=== PATIENT | male | born 1955 | race Caucasian/White ===

== ENCOUNTER 2019-05-27 12:20 | Inpatient (IN) | payer BC ==
[~2019-05-27] VITALS: Ht 188 cm; Wt 110.9 kg
[~2019-05-27 12:20] MED LIST: PERCOCET 325 MG1 TA2 PO; ZOFRAN ODT4 MG PO
--- NOTE | 2019-08-20 19:06 | NUR ---
Patient called regarding pre op Covid 19 screen. Will come to hospital [facility] for screening.
[2019-08-26] VITALS (12 sets, daily range): BP systolic 123–178; BP diastolic 54–83; PULSE 39–66; TEMP 97.3–98
[2019-08-26] MEDS ORDERED: SILENOR3 MG PO (04:10)
[2019-08-26] MEDS ORDERED: ZOCOR 10MG10 MG PO (04:10)
[2019-08-26] MEDS ORDERED: TOPAMAX50 MG PO (04:10)
[2019-08-26] MEDS ORDERED: MOBIC15 MG PO (04:11)
[2019-08-26] MEDS ORDERED: SINGULAIR 110 MG/TAB PO (04:12)
[2019-08-26] MEDS ORDERED: ASPIRIN E.C. 8181 MG PO (04:12)
[2019-08-26] MEDS ORDERED: VTAMINC250TA PO (05:53)
[2019-08-26] MEDS ORDERED: NATURAL IRON65 MG PO (05:54)
--- NOTE | 2019-08-26 10:35 | NUR ---
PATIENT BACK IN ROOM 327 POST OP. A&O. NOTED SB IN 40'S WITH ALL OVER VSS. PATIENT WAS SB IN 50'S ON ADMIT. SURGEON & ANESTHESIA AWARE, TELE INPLACE, NO OTHER NEW ORDERS. PATIENT HAS HX OF EF OF 52% PER PACU REPORT. RTK DRESSING IS CD&I WITH BULK DRESSING AND ICE PACK INPLACE. TEDS & SCD'S TO BLE. POSITIVE PEDAL PULSES TO BLE. NO HYATT, PATIENT WAS STRAIGHT CATHED IN PACU FOR 600CC. PATIENT DENIES NEED TO VOID. NO C/O N/V. LIQUIDS AT BEDSIDE. IV FLUIDS INFUSING INTO LEFT WRIST IV. HEAD TO TOE ASSESSMENT WNL. NO OTHER NEEDS AT THIS TIME. CALL LIGHT IN REACH. PATIENT CALLING
--- NOTE | 2019-08-26 11:14 | NUR ---
Manager Requirements met with patient to discuss discharge planning. Patient lives in [place] with his Valentine (ph#[phone]) and sees Dr. Arellano for primary care. Patient obtains medications from [facility] in [place] with no difficulties. Patient has a walker and crutches that he has for recovery. Patient is normally independent with ADLS. Patient does not have Advance Directives but was interested in obtaining the form. SW provided. Patient plans to return home upon discharge. SW to continue to follow as needed.
--- NOTE | 2019-08-26 11:24 | NUR ---
First visit from the district manager major accounts sales. No needs right now.
--- NOTE | 2019-08-26 19:30 | NUR ---
Received report from JOON Dixon. Pt currently lying in bed and resting. Cecily gave him pain him pain medication at this time. Pt has his call light within reach and his bed is lowest position.
--- NOTE | 2019-08-26 22:04 | NUR ---
Pt is currently dangling his legs off the side of the bed. Pt stated that his pain is better but he still feels it. Pt has agreed to go for a walk. He has has some nausea. Currently at pt bedside monitoring him while he is dangling.
--- NOTE | 2019-08-26 22:23 | NUR ---
Pt was given Zofran at this time for nausea. Pt stated that he was very sick. He is back in bed with his knee elvated. He agreed that once his nausea stops he wants to go for a walk. Call light is within reach and bed is in lowest position.
--- NOTE | 2019-08-27 00:53 | NUR ---
Pt ambulated down to the nurse station. Pt also ambulated back to the room and the bathroom. Pt requested something for pain after going for a walk. Pt stated that his pain was back up to a 7 maybe 8. Pt was given pain medication at this time. Pt is currently back in bed and his right knee is elevated with pillow underneath his calf, fresh ice was applied to his knee at this time. Pt has his call light within reach and his bed is in lowest position.
[2019-08-27 04:15] VITALS: BP 131/64; PULSE 57; TEMP 97.5
--- NOTE | 2019-08-27 05:00 | NUR ---
Pt has slept well during the night. When asked how his pain was doing he stated that his pain was much better. He stated that he was a maybe a 4 out of 10. He stated that he rested well. Pt has his call light within reach and bed in lowest position. Pt did ambulate to the restroom one more time during the night with gait belt and walker, standby assist. Pt is back in bed and resting with call light within reach and bed is in lowest position.
[2019-08-27 06:37] LABS: HEMOGLOBIN 11.7 g/dl (13.5-18.0)
[2019-08-27 06:40] LABS: HEMATOCRIT 34.6 % (42.0-52.0)
--- NOTE | 2019-08-27 07:15 | NUR ---
Reported off to JOON Warren. Pt has his call light within reach and currently eating his breakfast.
[2019-08-27 07:29] VITALS: BP 135/61; PULSE 54; TEMP 97.9
--- NOTE | 2019-08-27 07:34 | NUR ---
REPORT FROM CINDY DUPREE. DR. STEPHENS IN TO SEE PT THIS AM. PLAN ON DISCHARGE LATER THIS PM.
--- NOTE | 2019-08-27 09:55 | NUR ---
PT UP TO RECLINER AFTER THERAPY. DRESSING CHANGE COMPLETED IN RECLINER AFTER THIERAPY. SOME NAUSEA DURING BREAKFAST. IV ZOFRAN GIVEN ORDERED. PT VERBALIZED RELIFE OF SYMPTOMS.
[2019-08-27 11:11] VITALS: BP 127/67; PULSE 54; TEMP 97.7
--- NOTE | 2019-08-27 13:32 | NUR ---
Academic Specialist received referral from PT advising patient will need a new walker. Patient may discharge later today. JELANI met with patient who is agreeable to having order sent to [facility]. JELANI faxed order to Dr. Cheng's office. Dr. Cheng signed order and returned to JELANI via fax. JELANI faxed order, facesheet, H&P, and PT note to [facility]. JELANI spoke with Lizzie at [facility] and gave patient's height and weight. Lizzie reports standard walker should fit patient. JELANI provided update to JOON Warren that walker should be delivered today. Kelvin reports if patient can't eat he won't discharge today. JELANI to continue to follow.
[2019-08-27 15:33] VITALS: BP 124/68; PULSE 51; TEMP 98
--- NOTE | 2019-08-27 18:52 | NUR ---
REPORT TO STEVEN DUPREE
[2019-08-27 19:45] VITALS: BP 121/63; PULSE 55; TEMP 98.3
[2019-08-27 23:38] VITALS: BP 117/57; PULSE 57; TEMP 98
[2019-08-28 03:27] VITALS: BP 119/58; PULSE 67; TEMP 98.2
[2019-08-28 04:30] VITALS: BP 134/86
--- NOTE | 2019-08-28 04:33 | NUR ---
Patient has had a hard time sleeping tonight. Patient took own sleep medication at about 0100. PRN pain medication given x2 this shift. Patient attempted to sleep in the bed, but was unsuccessful d/t back pain, which is chronic for patient. Patient denies any nausea this shift. Scant amount of drainage noted to right knee dressing. TEDs on bilateral legs. INT to left forearm. Patient voids with no difficulty. Ambulates with stand-by assist with walker. Will continue to monitor patient.
[2019-08-28 08:25] VITALS: BP 133/58; PULSE 63; TEMP 98.1
--- NOTE | 2019-08-28 08:33 | NUR ---
PT UP TO RECLINER FOR BREAKFAST. THERAPY HERE WORKING WITH [facility] PLAN ON DISCHARGE LATER TODAY.
[2019-08-28] MEDS ORDERED: ASPI325T6 PO (10:56)
[2019-08-28] MEDS ORDERED: NORCO 325 MG-7.1 TAB PO (10:57)
[2019-08-28] MEDS ORDERED: TYLENOL 500MG500 MG PO (10:58)
[2019-08-28] MEDS ORDERED: ROXICODONE 55 MG/TAB PO (10:58)
[2019-08-28] MEDS ORDERED: COLACE 100100 MG/CAP PO (10:59)
--- NOTE | 2019-08-28 12:08 | NUR ---
DISCHARGE INSTRUCITONS PROVIDED TO PT. PT TAKEN TO POV.
== END 2019-08-28 11:30 | disposition home or self-care (01) | DRG 470 ==
LOC: JCC 08-12 07:30
PROVIDERS: ADMIT Orthopaedic Surgery
PROC: 0SRC0J9 Replacement of Right Knee Joint with Synthetic Substitute, Cemented, Open Approach (ICD-10-PCS; principal; 2019-08-26 07:30)
DX: M17.11 Unilateral primary osteoarthritis, right knee (principal); G43.909 Migraine, unspecified, not intractable, without status migrainosus; K21.9 Gastro-esophageal reflux disease without esophagitis; Z79.82 Long term (current) use of aspirin; Z79.1 Long term (current) use of non-steroidal anti-inflammatories (NSAID); Z86.73 Personal history of transient ischemic attack (TIA), and cerebral infarction without residual deficits
CPT/HCPCS: A9284; C1776; J0690; J1885; J2250; J2270; J2405; J2704; J7120

== ENCOUNTER → 2019-09-06 | Outpatient (CLI) | payer BC ==
[~2019-09-06] MED LIST changes: +ASPI325T6 PO; +ASPIRIN E.C. 8181 MG PO; +COLACE 100100 MG/CAP PO; +MOBIC15 MG PO; +NATURAL IRON65 MG PO; +NORCO 325 MG-7.1 TAB PO; +ROXICODONE 55 MG/TAB PO; +SILENOR3 MG PO; +SINGULAIR 110 MG/TAB PO; +TOPAMAX50 MG PO; +TYLENOL 500MG500 MG PO; +VTAMINC250TA PO; +ZOCOR 10MG10 MG PO
== END ==
LOC: COL.VAS 09:15
DX: M79.89 Other specified soft tissue disorders (principal); M79.661 Pain in right lower leg